=== PATIENT | male | born 1945 | race African-American/Black ===

== ENCOUNTER → 2016-08-24 | Outpatient (CLI) | payer MEDICARE, BC ==
[2016-01-24 17:50] VITALS: BP 148/72
[~2016-08-24] MED LIST: ALLO100T; ASPI-630; ATORVASTATIN CA80 MG; CHOL100013; CYAN500T; EZET10TA18; FOLI0.8T2; FOLI0.8T3; HYOS0.126; LEVO75TA5; METO25TA4; NORT10CA; SCOP1PAT; SENN1TAB21; UMEC1DIS
--- NOTE | 2016-08-24 14:50 | RAD ---
Examination: 2 views of the chest History: History of aspiration pneumonia, shortness of breath Comparison: 01/22/2016 Findings: Median sternotomy wires appear intact. The cardiomediastinal silhouette grossly appears unremarkable. There is no acute infiltrate or visualized pneumothorax identified. Mild prominent appearing bilateral interstitial lung markings grossly similar to prior exam likely chronic. Impression: 1. No acute cardiopulmonary findings. 2. Mild prominent appearing bilateral interstitial lung markings likely chronic similar to prior exam.
== END | disposition home or self-care (01) ==
LOC: RAD 13:45
PROVIDERS: ATTEND Internal Medicine
DX: J69.0 Pneumonitis due to inhalation of food and vomit (principal)
CPT/HCPCS: 71020